=== PATIENT | female | born 1940 | race Caucasian/White ===

== ENCOUNTER 2018-12-07 15:01 | Emergency (ER) | payer MEDICARE, OTHER ==
[~2018-12-07] VITALS: Ht 142.2 cm; Wt 49.9 kg
[~2018-12-07 15:01] MED LIST: DULO20CA PO; FERR-20 PO; LISI40TA PO; METF-489 PO; SIMV-13 PO; SUCR1SUS10 PO
[2018-12-07 16:15] VITALS: BP 152/63
== END 2018-12-07 16:23 | disposition home or self-care (01) ==
LOC: ER 15:02
DX: R51 Headache (principal); E11.9 Type 2 diabetes mellitus without complications; I10 Essential (primary) hypertension; E78.5 Hyperlipidemia, unspecified; Z88.1 Allergy status to other antibiotic agents; Z88.8 Allergy status to other drugs, medicaments and biological substances; Z90.49 Acquired absence of other specified parts of digestive tract; Z90.89 Acquired absence of other organs
CPT/HCPCS: 70450